=== PATIENT | male | born 1970 | race Caucasian/White ===

== ENCOUNTER 2016-10-13 09:21 | Emergency (ER) | payer BC ==
[2016-10-13 09:21] VITALS: BMI 36.6
[2016-10-13 09:44] VITALS: BP 142/72; PULSE 100; RESP 20; TEMP 97.7; O2SAT 98
--- NOTE | 2016-10-13 10:08 | ED PDOC ---
HPI: Headache Chief Complaint (Provider): Headache History Per: Patient History/Exam Limitations: no limitations Onset/Duration Of Symptoms: Days, Intermittent Episodes Current Symptoms Are (Timing): Still Present Severity: Moderate Pain Scale Rating Of: 7 Quality: "Pain" Preceeding Symptoms: Known Migraine Symptoms. denies: Visual Disturbances Associated Symptoms: Nausea. denies: Vomiting, Extremity Weakness Additional History Per: Patient Additional Complaint(s): 46 yo M with hx of migraines presents today with c/o intermittent episodes of headaches x 2.5 weeks. Describes the headache has band-like, across the back of his head and across forehead. Pt states that typically, his migraines resolve with Excedrin or Advil Migraine. For the past 2.5 weeks, pt has been taking these medications which does cause resolution of symptoms, but headache returns. Associated with nausea for past 2 days, but no vomiting. Denies photophobia or phonophobia at this time. Does c/o blurry vision, that is chronic in nature. Wearing corrective lenses that are 4 years old because he lost his new glasses which were higher prescription. Denies fever, chills, neck pain, abdominal pain, weakness, numbness/tingling. Pt does c/o of a "soft spot" on the back of his head that has been present for years, and is unsure if this is causing the headache. Does report recent stressors - works 2 maintenance and operations supervisor jobs, c/o lack of sleep, also going through a divorce. <Sandra Irwin - Last Filed: 10/13/16 13:06> <Sindhu Atwood - Last Filed: 10/13/16 16:16> Time Seen by Provider: 10/13/16 09:38 Chief Complaint (Nursing): Headache Supervising Attending Note - Supervising Attending Note The Documented history was done by the: Physician Aircraft Machinist Helper, Attending Physician The documented physical exam was done by the: Physician Aircraft Machinist Helper, Attending Physician The documented procedures were done by the: Physician Aircraft Machinist Helper, Attending Physician - Attestation: I have personally seen and examined this patient.: Yes I have fully participated in the care of the patient.: Yes I have reviewed all pertinent clinical information: Yes <Sindhu Atwood - Last Filed: 10/13/16 16:16> Past Medical History Reviewed: Historical Data, Nursing Documentation, Vital Signs Vital Signs: Last Vital Signs Temp 97.7 F 10/13/16 09:36 Pulse 100 H 10/13/16 09:36 Resp 20 10/13/16 09:36 BP 142/72 10/13/16 09:36 Pulse Ox 98 10/13/16 09:36 - Medical History PMH: Gall Bladder Disease, Migraine Denies: Chronic Kidney Disease - Surgical History Surgical History: Appendectomy, Cholecystectomy - Family History Family History: States: Unknown Family Hx <IrwinSandra hazel - Last Filed: 10/13/16 13:06> Vital Signs: Last Vital Signs Temp 97.7 F 10/13/16 09:36 Pulse 100 H 10/13/16 09:36 Resp 20 10/13/16 09:36 BP 142/72 10/13/16 09:36 Pulse Ox 98 10/13/16 13:08 <Sindhu Atwood - Last Filed: 10/13/16 16:16> - Home Medications Home Medications: Ambulatory Orders Medication Instructions Recorded Acetaminophen/Oxycodone Hydr 1 - 2 tab PO Q4 PRN #12 tab 06/08/14 [Percocet 325 mg-5 mg] Cholecalciferol (Vitamin D3) 1,000 iu PO DAILY 07/02/14 [Vitamin D] Ibuprofen [Advil] 200 mg PO PRN PRN 07/02/14 Multivitamin 1 tab PO DAILY 07/02/14 Kulm-3 Fatty Acids/Fish Oil [Fish 2 cap PO DAILY 07/02/14 Oil 1,000 mg Capsule] Saw [place] 3 cap PO DAILY 07/02/14 Oxycodone HCl/Acetaminophen 1 tab PO Q4 PRN 07/09/14 [Percocet 325 mg-5 mg] - Allergies Allergies/Adverse Reactions: Allergies Allergy/AdvReac Type Severity Reaction Status Date / Time shellfish derived Allergy RASH Verified 10/13/16 09:33 Review of Systems Constitutional: Negative for: Fever, Chills Eyes: Negative for: Vision Change Cardiovascular: Negative for: Chest Pain Respiratory: Negative for: Cough, Shortness of Breath Gastrointestinal: Positive for: Nausea. Negative for: Vomiting, Abdominal Pain Musculoskeletal: Negative for: Neck Pain Neurological: Positive for: Headache. Negative for: Weakness, Numbness, Incoordination, Change in Speech, Confusion, Altered Mental Status, Dizziness <Sandra Irwin - Last Filed: 10/13/16 13:06> Physical Exam - Reviewed Nursing Documentation Reviewed: Yes Vital Signs Reviewed: Yes - Physical Exam Appears: Positive for: No Acute Distress Head Exam: Positive for: ATRAUMATIC (small indentation noted in superior occipital region - nontender to palpation) Skin: Positive for: Normal Color, Warm, Dry Eye Exam: Positive for: Normal appearance, EOMI, PERRL ENT: Positive for: Normal ENT Inspection, TM Is/Are (clear b/l) Neck: Positive for: Normal, Painless ROM, Supple Cardiovascular/Chest: Positive for: Regular Rate, Rhythm Respiratory: Positive for: Normal Breath Sounds Gastrointestinal/Abdominal: Positive for: Bowel Sounds, Soft. Negative for: Tenderness Neurologic/Psych: Positive for: Alert, shovel logger II-XII, Oriented, Cerebellar Tests ( normal), Gait (normal). Negative for: Motor/Sensory Deficits, Aphasia <Sandra Irwin - Last Filed: 10/13/16 13:06> - ECG O2 Sat by Pulse Oximetry: 98 - Progress ED Course And Treament: NS 1L bolus Toradol 30mg IV x 1 Reglan 10mg IV x 1 Pt is hungry and asking to eat (last ate > 12 hours ago); son at bedside states he will bring food Reeval 12pm - pt with improved headache, but feels "heaviness" CT head ordered 1pm CT head negative Pt feeling better Will d/c home and pt to f/u with PMD and neuro <Sandra Irwin - Last Filed: 10/13/16 13:06> Disposition - Disposition Disposition: Routine/Home Disposition Time: 13:07 <Sandra Irwin - Last Filed: 10/13/16 13:06> <Sindhu Atwood - Last Filed: 10/13/16 16:16> - Clinical Impression Clinical Impression: Migraine - Disposition Referrals: Dick Perez MD [Primary Care Provider] - Abdiaziz Cheek MD [Medical Doctor] - Condition: GOOD Additional Instructions: Follow up with your primary care doctor within 2-3 days. Instructions: Migraine Headache (ED)
[2016-10-13] MEDS ORDERED: Sodium Chloride 0.9% 1,000 ML IV SCH (10:15)
--- NOTE | 2016-10-13 12:53 | CT ---
PROCEDURE: CT HEAD WITHOUT CONTRAST. HISTORY: headache COMPARISON: None available. TECHNIQUE: Axial computed tomography images were obtained through the head/brain without intravenous contrast. Radiation dose: Total exam DLP = 864.28 mGy-cm. FINDINGS: HEMORRHAGE: No intracranial hemorrhage. BRAIN: No mass effect or edema. The orta-white matter differentiation appears intact. Please note that MRI with diffusion imaging is more sensitive in the detection of acute ischemic event. VENTRICLES: No hydrocephalus. CALVARIUM: Unremarkable. PARANASAL SINUSES: Unremarkable as visualized. No significant inflammatory changes. MASTOID AIR CELLS: Unremarkable as visualized. No inflammatory changes. OTHER FINDINGS: None. IMPRESSION: No acute intracranial pathology identified.
== END 2016-10-13 13:19 | disposition home or self-care (01) ==
LOC: H.ER 09:21
DX: G43.909 Migraine, unspecified, not intractable, without status migrainosus (principal)
CPT/HCPCS: 70450; 96361; 96374; 96375; 99285; J1885; J2765; J7040